=== PATIENT | male | born 1960 | race Caucasian/White ===

== ENCOUNTER 2016-08-03 06:53 | Emergency (ER) | payer OTHER ==
[2016-08-03] MEDS ORDERED: ONDANSETRON HCL 4 MG/2 ML VIAL ONE (07:16)
[2016-08-03 07:18] LABS: BASOPHIL# 0.1 X 10^3uL (0.0-0.1); BASOPHILS 0.7 % (0.0-2.0); EOSINOPHILS# 0.2 X 10^3uL (0.0-0.4); HEMATOCRIT 52.1 % (42.0-54.0); HEMOGLOBIN 18.1 g/dL (14.0-18.0); LYMPHOCYTES 27.7 % (20.0-40.0); LYMPHOCYTES# 2.3 X 10^3uL (0.8-3.8); MEAN CELL VOLUME 88.6 fL (80.0-100.0); MEAN CORPUS. HGB CONCENTRATION 34.8 g/dL (32.0-36.0); MEAN CORPUSCULAR HEMOGLOBIN 30.8 pg (29.0-35.0); MEAN PLATELET VOLUME 8.1 fL (7.4-10.4); MONOCYTES 6.9 % (2.0-10.0); MONOCYTES# 0.6 X 10^3uL (0.2-1.0); NEUTROPHILS 62.7 % (54.0-75.0); NEUTROPHILS# 5.1 X 10^3uL (2.6-6.7); PLATELET COUNT 344 X 10^3uL (130-440); RED BLOOD COUNT 5.89 X 10^6uL (4.20-6.10); RED CELL DISTRIBUTION WIDTH 12.5 % (11.5-14.5); WHITE BLOOD COUNT 8.3 X 10^3uL (3.9-10.7)
[2016-08-03 07:27] LABS: BLOOD UREA NITROGEN 13 mg/dL (9-20); CALCIUM 9.6 mg/dL (8.4-10.2); CHLORIDE 106 mmol/L (98-107); EST GLOMERULAR FILTRATION RATE > 60 mL/min; GLUCOSE 177 mg/dL (70-100); POTASSIUM 3.1 mmol/L (3.5-5.1); SODIUM 139 mmol/L (137-145)
[2016-08-03] MEDS ORDERED: DIAZEPAM 10 MG/2 ML SYR ONE ×2 (08:03→11:57)
[2016-08-03] MEDS ORDERED: POTASSIUM CHLORIDE/NS 1,000 ML IV ONE (08:03)
--- NOTE | 2016-08-03 11:23 | CT REPORT ---
HISTORY: Dizziness and vomiting. COMPARISON: None. TECHNIQUE: Axial non-contrast images obtained from skull vertex through foramen magnum. Dose reduction technique was utilized. FINDINGS: There is no atrophy. There is no hemorrhage. There is no hydrocephalus. No mass lesion is identifi ed. Badillo white differentiation adequate, there is no infarction. No midline shift is identified. T he paranasal sinuses are clear. IMPRESSION: Normal head CT. Final Electronic Signature: This report was electronically signed by Jerome Alvarenga MD, FACR on 2016 11:21 AM. new /
[2016-08-03] MEDS ORDERED: ONDANSETRON ODT 8 MG TAB.RAPDIS PO ONE (14:14)
--- NOTE | 2016-08-03 14:25 | ER NURSING DOCUMENTATION ---
Nurse's Notes [facility] Name:Sam Wayne Age:55 yrs Sex:Male :1960 Arrival Date:08/03/2016 Time:06:53 BedTrauma C Private MD: Diagnosis:Benign Positional Vertigo Presentation: 08/03 07:00 Presenting complaint: Patient states: dizzy started this morning did have BM but denies cb any unusual colors. Transition of care: Home. 07:00 Method Of Arrival: Private Vehicle cb 07:02 Acuity: DARREN 2 lb 07:05 Notified ED Physician of patient's arrival and CC Dr. Carballo notified. cb Triage Assessment: 07:15 General: Appears distressed, well groomed, Behavior is cooperative. Pain: Denies pain. cb EENT: No deficits noted. Neuro: Level of Consciousness is awake, alert, Oriented to person, place, time, event, Reports dizziness, since this morning worse when he moves head to left side. Cardiovascular: Rhythm is with rare PVC. Cardiovascular: skin very pale . skin very diaphoretic to touch. Respiratory: Airway is patent Trachea midline Respiratory effort is even, unlabored, Respiratory pattern is regular, symmetrical. GI: Pt is actively vomiting bile, Bowel sounds diminished in right upper quadrant, left upper quadrant, right lower quadrant and left lower quadrant Reports nausea, normal bowel habits, Denies pain. : No deficits noted. Derm: Skin is intact, Skin is clammy, diaphoretic, Skin is pale, Skin temperature is cool. Musculoskeletal: No deficits noted. Historical: - Allergies: No known drug Allergies; - Home Meds: 1. None - PMHx: NONE; - PSHx: None; - Tetanus: > 10 years. - Ebola Screening: : Patient negative for fever greater than or equal to 101.5 degrees Fahrenheit, and additional compatible Ebola Virus Disease symptoms. Patient denies exposure to infectious person. Patient denies travel to an Ebola-affected area in the 21 days before illness onset. No symptoms or risks identified at this time. . - Immunization history: Flu Vaccine None. - Social history: Smoking status: Patient states was never smoker of tobacco. Screenin:32 Abuse screen: Denies threats or abuse. Denies injuries from another. Nutritional cb screening: No deficits noted. 07:38 Infectious Disease Risk None. cb Assessment: 07:37 GI: Pt is actively vomiting bile, Bowel sounds diminished in right upper quadrant, left cb upper quadrant, right lower quadrant and left lower quadrant Reports nausea. Vital Signs: 06:57 BP 162 / 98; Pulse 63; Resp 17; Temp 95.7(TE); Pulse Ox 98% ; Weight 77.11 kg; Height 6 cb ft. (182.88 cm); Pain 0/10; 07:00 BP 157 / 96; Pulse 69; Resp 17; Pulse Ox 99% on R/A; cb 07:30 BP 165 / 88; Pulse 65; Resp 19; cb 08:00 BP 166 / 109; Pulse 64; Pulse Ox 95% on 2 lpm NC; cb 08:30 BP 153 / 98; Pulse 61; Resp 16; Pulse Ox 100% on 2 lpm NC; cb 09:07 BP 141 / 96; Pulse 58; Pulse Ox 99% ; cb 09:30 BP 111 / 81; cb 06:57 Body Mass Index 23.06 (77.11 kg, 182.88 cm) cb ED Course: 06:55 Patient arrived in ED. ds 07:00 Inserted saline lock: 20 gauge in right antecubital area and blood collected. em1 07:00 EKG done. (by ED staff). Reviewed by Otto Carballo MD. cb 07:02 Triage completed. lb 07:10 Labs drawn. By special crimes investigator Sent per order to lab. cb 07:11 Edda Loco, RN is Primary Nurse. cb 07:16 Otto Carballo MD is Attending Physician. sc 07:32 Valuables Remains with patient Patient has correct armband on for positive cb identification. Placed in gown. Bed in low position. Call light in reach. Side rails up X2. formulator on. Pulse ox on. NIBP on. 08:09 Oxygen Oxygen administration via nasal cannula @ 2L/min. cb 08:54 EKG attached cb 09:17 Assisted with urinal. cb 11:04 Diet: Patient given water. Tolerated poorly. Vomited food/fluids. cb 11:23 Patient moved to [place]. darya 11:23 Patient moved back from [place]. darya 13:09 [facility] is Referral Physician. sc Administered Medications: 07:05 Drug: NS 0.9% 500 ml; Route: IV; Rate: bolus; Site: right antecubital; cb 08:07 Follow up: IV Status: Infusion continued; IV Intake: 600ml cb 07:09 Drug: Zofran 4 mg; Route: IVP; Infused Over: 2 mins; Site: right antecubital; mv 07:31 Follow up: Response: Nausea is decreased cb 08:07 Drug: Valium 5 mg; Route: IVP; Site: right antecubital; cb 08:53 Follow up: Response: Marked relief of symptoms cb 08:09 Not Given (Duplicate Order): Potassium Chloride 20 mEq IV at calculated rate once cb 08:09 Drug: NS with KCl 20 mEq/L 999 ml/hr; Volume: 1000 ml; Route: IV; Rate: 1000 ml/hr; cb Infused Over: 1 hrs; Site: right antecubital; 09:27 Follow up: IV Status: Completed infusion; IV Intake: 1000ml cb 11:47 Not Given (Duplicate Order): Valium 5 mg IVP once cb 11:55 Drug: Valium 5 mg; Route: IVP; Site: right antecubital; cb 12:25 Follow up: Response: Marked relief of symptoms cb 14:10 Drug: Zofran 8 mg; Route: PO; cb 15:24 Follow up: Response: Nausea is decreased cb Point of Care Testing: Blood Glucose: 07:15 Blood Glucose: 186 mg/dL; cb Urine Dip: 09:14 pH: 7.0; ; Specific [place]: 1.020; Ketones: Negative; Glucose: Positive; Protein: cb Negative; Leukocytes: Negative; Nitrite: Negative ; Blood: Negative; Bilirubin: Negative ; Urobilinogen: Normal Ranges: Intake: 08:07 IV: 600ml; Total: 600ml. cb 09:27 IV: 1000ml; Total: 1600ml. cb Output: 09:20 Urine: 400ml (Voided); Total: 400ml. cb 11:05 Urine: 350ml (Voided); Total: 750ml. cb Outcome: 13:09 Discharge ordered by . sc 14:00 Discharged to home via wheelchair, with family. cb 14:00 Condition: stable cb 14:00 Instructed on discharge instructions, follow up and referral plans. medication usage, Demonstrated understanding of instructions, medications, Prescriptions given X 1. 14:24 Patient left the ED. cb 08/04 10:06 Discharge F/U Call: Unable to reach: no answer st Signatures: Edda Loco RN RN Jacqueline Smith RN RN st Srot, Sonia, Reg Reg ds Haris, MD MD rui Menjivar, Milagros lackey [facility], [facility] em1 fredi victor Lynda lb
--- NOTE | 2016-08-03 14:25 | ER PHYSICIAN DOCUMENTATION ---
Physician Documentation [facility] Name:Sam Wayne Age:55 yrs Sex:Male :1960 Arrival Date:08/03/2016 Time:06:53 BedTrauma C Private MD: Otto Fernández Disposition: 08/03/16 13:09 Discharged to Home/Self Care. Impression: Benign Positional Vertigo. - Condition is Fair. - Discharge Instructions: BENIGN POSITIONAL VERTIGO. - Prescriptions for Meclizine 25 mg Oral Tablet - take 1 tablet by ORAL route every 8 hours As needed; 30 tablet. - Medical Reconciliation form form. - Follow up: [facility]; When: 4- 6 days; Reason: Recheck today's complaints. - Problem is new. - Symptoms have improved. HPI: 08/03 12:51 This 55 yrs old Male presents to ER via Private Vehicle with complaints of sc Vomiting. 13:05 The patient presents with sense of spinning, vertigo. Onset: The symptom(s)/episode sc began/occurred this morning. Context: occurred at home, occurred while the patient was asleep, just prior to the episode the patient experienced no apparent symptoms. Associated signs and symptoms: Pertinent positives: ataxia, nausea, vomiting. Severity of symptoms: At their worst the symptoms were incapacitating. Patient's baseline: Neuro: alert and fully oriented, Motor: no deficits, Ambulation: walks without assistance, Speech: normal. The patient has not experienced similar symptoms in the past. Historical: - Allergies: No known drug Allergies; - Home Meds: 1. None - PMHx: NONE; - PSHx: None; - Tetanus: > 10 years. - Ebola Screening: : Patient negative for fever greater than or equal to 101.5 degrees Fahrenheit, and additional compatible Ebola Virus Disease symptoms. Patient denies exposure to infectious person. Patient denies travel to an Ebola-affected area in the 21 days before illness onset. No symptoms or risks identified at this time. . - Immunization history: Flu Vaccine None. - Social history: Smoking status: Patient states was never smoker of tobacco. ROS: 13:05 Constitutional: Negative for fever, chills, and weight loss. sc Eyes: Negative for injury, pain, redness, and discharge. ENT: Negative for injury, pain, and discharge. Neck: Negative for injury, pain, and swelling. Cardiovascular: Negative for chest pain, palpitations, and edema. Respiratory: Negative for shortness of breath, cough, wheezing, and pleuritic chest pain. Back: Negative for injury and pain. 13:05 Skin: Negative for injury, rash, and discoloration. sc 13:05 Neuro: Positive for dizziness. Exam: Head/Face: Normocephalic, atraumatic. Eyes: Pupils equal round and reactive to light, extra-ocular motions intact. Lids and lashes normal. Conjunctiva and sclera are non-icteric and not injected. Cornea within normal limits. Periorbital areas with no swelling, redness, or edema. Neck: Trachea midline, no thyromegaly or masses palpated, and no cervical lymphadenopathy. Supple, full range of motion without nuchal rigidity, or vertebral point tenderness. No meningismus. Chest/axilla: Normal chest wall appearance and motion. Nontender with no deformity. No lesions are appreciated. Cardiovascular: Regular rate and rhythm with a normal S1 and S2. No gallops, murmurs, or rubs. Normal PMI, no JVD. No pulse deficits. Respiratory: Lungs have equal breath sounds bilaterally, clear to auscultation and percussion. No rales, rhonchi or wheezes noted. No increased work of breathing, no retractions or nasal flaring. Abdomen/GI: Soft, non-tender, with normal bowel sounds. No distension or tympany. No guarding or rebound. No evidence of tenderness throughout. 13:06 Back: No spinal tenderness. No costovertebral tenderness. Full range of motion. sc 13:06 Constitutional: The patient appears in obvious distress, severely distressed. 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 Vital Signs: 06:57 BP 162 / 98; Pulse 63; Resp 17; Temp 95.7(TE); Pulse Ox 98% ; Weight 77.11 kg; Height 6 cb ft. (182.88 cm); Pain 0/10; 07:00 BP 157 / 96; Pulse 69; Resp 17; Pulse Ox 99% on R/A; cb 07:30 BP 165 / 88; Pulse 65; Resp 19; cb 08:00 BP 166 / 109; Pulse 64; Pulse Ox 95% on 2 lpm NC; cb 08:30 BP 153 / 98; Pulse 61; Resp 16; Pulse Ox 100% on 2 lpm NC; cb 09:07 BP 141 / 96; Pulse 58; Pulse Ox 99% ; cb 09:30 BP 111 / 81; cb 06:57 Body Mass Index 23.06 (77.11 kg, 182.88 cm) cb MDM: 07:41 Patient medically screened. hi 07:42 ECG:. hi 08:54 EKG attached cb 13:08 Differential diagnosis: generalized weakness, TIA, vertigo. Data reviewed: vital signs, hi nurses notes, lab test result(s), EKG, radiologic studies, CT scan, and as a result, I will continue to observe the patient, administer IV fluids, administer potassium. Counseling: I had a detailed discussion with the patient and/or guardian regarding: the historical points, exam findings, and any diagnostic results supporting the discharge/admit diagnosis, lab results, radiology results, the need for outpatient follow up. Medication response: The patient's symptoms have improved. 08/03 07:20 Order name: CBC AUTO DIF, MDIF/RMOR IF IND; Complete Time: 07:42 EDMS 08/03 07:41 Interpretation: Normal. hi 08/03 07:29 Order name: BASIC METABOLIC PANEL; Complete Time: 07:42 EDMS 08/03 07:41 Interpretation: Abnormal: POTASSIUM 3.1; CARBON DIOXIDE 19. hi 08/03 11:25 Order name: CAT SCAN; HEAD W/O CON 62731; Complete Time: 13:13 EDMS 08/03 13:13 Interpretation: Normal. hi 08/03 07:07 Order name: Iv Saline Lock; Complete Time: 07:31 lb 08/03 07:35 Order name: 12-lead EKG; Complete Time: 07:35 08/03 07:38 Order name: Cardiac Monitoring - Continuous; Complete Time: 07:39 cb 08/03 07:38 Order name: Pulse Ox Continuous; Complete Time: 07:39 08/03 07:42 Order name: Urine Dip; Complete Time: 09:13 hi 08/03 08:10 Order name: Oxygen; Complete Time: 08:10 cb EC:42 Rate is 60 beats/min. Rhythm is regular. QRS [place] is Normal. MI interval is normal. QRS sc interval is normal. QT interval is normal. No Q waves. T waves are Flattened in leads II, III. No ST changes noted. Clinical impression: Normal ECG. Interpreted by me. Reviewed by me. Dispensed Medications: 07:05 Drug: NS 0.9% 500 ml; Route: IV; Rate: bolus; Site: right antecubital; cb 08:07 Follow up: IV Status: Infusion continued; IV Intake: 600ml cb 07:09 Drug: Zofran 4 mg; Route: IVP; Infused Over: 2 mins; Site: right antecubital; mv 07:31 Follow up: Response: Nausea is decreased cb 08:07 Drug: Valium 5 mg; Route: IVP; Site: right antecubital; cb 08:53 Follow up: Response: Marked relief of symptoms cb 08:09 Not Given (Duplicate Order): Potassium Chloride 20 mEq IV at calculated rate once cb 08:09 Drug: NS with KCl 20 mEq/L 999 ml/hr; Volume: 1000 ml; Route: IV; Rate: 1000 ml/hr; cb Infused Over: 1 hrs; Site: right antecubital; 09:27 Follow up: IV Status: Completed infusion; IV Intake: 1000ml cb 11:47 Not Given (Duplicate Order): Valium 5 mg IVP once cb 11:55 Drug: Valium 5 mg; Route: IVP; Site: right antecubital; cb 12:25 Follow up: Response: Marked relief of symptoms cb 14:10 Drug: Zofran 8 mg; Route: PO; cb 15:24 Follow up: Response: Nausea is decreased cb Point of Care Testing: Blood Glucose: 07:15 Blood Glucose: 186 mg/dL; cb Urine Dip: 09:14 pH: 7.0; ; Specific [place]: 1.020; Ketones: Negative; Glucose: Positive; Protein: cb Negative; Leukocytes: Negative; Nitrite: Negative ; Blood: Negative; Bilirubin: Negative ; Urobilinogen: Normal Ranges: Critical Glucose Levels:Adult <50 mg/dl or >400 mg/dl <40 mg/dl or >180 mg/dl Signatures: Ballinghoff, Edda, RN RN Otto Rich MD MD sc vogel, margaux mv Bollock, Lynda lb
== END 2016-08-03 14:25 | disposition home or self-care (01) ==
LOC: ER 06:53
DX: H81.10 Benign paroxysmal vertigo, unspecified ear (principal); R11.2 Nausea with vomiting, unspecified; E87.6 Hypokalemia
CPT/HCPCS: 70450; 80048; 85025; 93005; 96361; 96365; 96375; 96376; 99285; J2405; J3360; J3480